=== PATIENT | male | born 1955 ===

== ENCOUNTER 2016-07-19 09:56 | Day surgery (SDC) | payer OTHER ==
[2016-07-19 10:29] VITALS: RESP 18
[2016-07-19 10:49] VITALS: BMI 29.1
[2016-07-19] MEDS ORDERED: SENSORCAINE 0.5% W/EPINEPHRINE 50ML MDV IJ ONE (11:16)
[2016-07-19] MEDS ORDERED: Ropivacaine 0.5% 30ML IV ONE (13:05)
[2016-07-19] MEDS ORDERED: Midazolam 2 MG/2 ML VIAL ONE (13:08)
[2016-07-19] MEDS ORDERED: Propofol 10 mg/ml Inj (20 ML) ONE (13:08)
[2016-07-19] MEDS ORDERED: Lactated Ringer's 1,000 ML IV ONE (13:15)
[2016-07-19] MEDS ORDERED: Sodium Chloride 0.9% 100 ML IV ONE (13:30)
[2016-07-19] MEDS ORDERED: Sevoflurane - Inhalation Anesthetic Liq (250 ml) ONE (13:46)
[2016-07-19] MEDS ORDERED: Labetalol 5mg/ml (4ml) ONE (14:21)
[2016-07-19] MEDS ORDERED: EPINEPHRINE IV ONE (14:25)
[2016-07-19] MEDS ORDERED: SODIUM CHLORIDE IV ONE (14:25)
[2016-07-19] MEDS ORDERED: Liquid Adhesive TOP ONE (14:58)
[2016-07-19] MEDS ORDERED: Oxycodone/Acetaminophen 5/325 mg Tab PO PRN ×2 (15:22)
[2016-07-19] MEDS ORDERED: HYDROmorphone 0.5 mg/0.5 ml ISec ONE (15:28)
[2016-07-19] MEDS ORDERED: HYDROmorphone 0.5 mg/0.5 ml ISec IVP PRN (15:31)
[2016-07-19] MEDS ORDERED: Lactated Ringer's 1,000 ML IV SCH (15:31)
--- NOTE | 2016-07-19 15:32 | PCM.SURG1 ---
Surgeon's Initial Post Op Note - Surgeon's Notes Surgeon: Sarah Shi MD Gallery Intern: Dina Brasher PA-C; Nicki Guo MD Type of Anesthesia: General Endo Pre-Operative Diagnosis: Left Shoulder Partial RTC tear Operative Findings: See op report Post-Operative Diagnosis: Same as pre-op dx Operation Performed: Left shoulder arthroscopy, debriedement, subacromial decompression, AC resection, mini open subpec biceps tenodesis Specimen/Specimens Removed: None Estimated Blood Loss: EBL {In ML}: 20 Date of Surgery/Procedure: 07/19/16 Time of Surgery/Procedure: 14:00
--- NOTE | 2016-07-19 15:35 | PCM.ANESB1 ---
Interscalene Block - Brachial Plexus Date of Procedure: 07/19/16 Anesthesiologist: Shruthi Pre-Procedure Diagnosis: left shoulder internal derangement Post-Procedure Diagnosis: same Procedure Performed: Interscalene Block of Brachial Plexus Left - Procedure Interscalene Block of Brachial Plexus: This procedure was explained to the patient that it is for post-operative pain management. Consent was obtained after a thorough discussion with the patient regarding the benefits and possible complications of local anesthetic block of the Brachial Plexus at the Interscalene area. The patient was brought to the Operating Room and standard monitors were applied. Time out was held with the circulating nurse to confirm the correct surgery and appropriate block. After applying Oxygen by nasal cannula and administering IV Sedation, the patient's head was gently rotated away from the _left operative shoulder and the anterior scalene groove was carefully palpated. The ultrasound transducer was then applied to the skin in the transverse plane and the brachial plexus was visualized lateral to the carotid artery and in between the anterior and middle scalene muscles. After identification,the anterior lateral portion of the neck was prepped with Betadine solution three times and Lidocaine 1% was injected subcutaneously for topical analgesia. At this point, a # 22 gauge Stimuplex 2 inches insulated needle was inserted into the interscalene groove and directed in a caudal and midline direction. The needle was inserted lateral to the ultrasound transducer in-plane towards the brachial plexus in a [id number] direction. Needle advancement was performed carefully under direct ultrasound visualization. Nerve stimulator was used and twitched of the affected extremity including the hand brachialis muscles, biceps and the deltoid was obtained at a current of __0.3___MA. After repeated negative aspiration,___5__cc of__0.5___,___ropivacaine were injected and this was followed with __15___cc of __.05___% ___Ropivacaine__ . Under ultrasound guidance the local anesthetics were observed surrounding the roots of the brachial plexus. The needle was removed intact and sterile dressing was applied. The patient had stable vital signs, was conscious and in no apparent distress. The patient tolerated the interscalene block of the bracheal plexus well with stable vital signs and was prepared for subsequent surgery.
[2016-07-19 17:00] VITALS: TEMP 98
--- NOTE | 2016-07-19 17:00 | OP ---
PROCEDURE DATE: 07/19/2016 DATE OF OPERATION: 07/19/2016 ATTENDING PHYSICIAN: Sarah Shi MD ASSISTANTS: NAILA Sotomayor PREOPERATIVE DIAGNOSES: 1. Left shoulder partial rotator cuff tear. 2. Impingement. 3. Tenosynovitis. POSTOPERATIVE DIAGNOSES: 1. Left shoulder partial supraspinatus tear. 2. Anterior labral tear. 3. Type I superior labral anterior posterior tear. 4. Biceps tenosynovitis. 5. Impingement. 6. Subacromial bursitis. 7. Multiple subacromial adhesions. 8. Acromioclavicular joint arthritis. ANESTHESIA: General, interscalene block PROCEDURE: 1. Left shoulder extensive debridement. 2. Lysis of adhesion without manipulation. 3. Subacromial decompression with acromioplasty. 4. Distal clavicle excision. 5. Sub-pec biceps tenodesis. EBL: 5 mL SPECIMENS: None CLOSURE: Primary FLUIDS: See anesthesia sheet ANTIBIOTICS: See anesthesia sheet COMPLICATIONS: None INDICATIONS: After failing a course of non-operative therapy, the patient elected to undergo the above procedures. In the office the risks and possible complications of the shoulder arthroscopy were discussed in detail with the patient. These risks include, but are not limited to: continued pain, lack of motion, infection, vascular injury, and nerve injury including axillary nerve dysfunction, reflex sympathetic dystrophy, compartment syndrome, limb loss, and . The patient expressed an understanding of the risks and possible benefits of the procedure, and was also made aware of the alternatives to surgery. An informed consent was obtained, and was checked immediately pre-op. PROCEDURE 1: The patient was correctly identified in the holding area and the left shoulder was marked with the surgeon's initials. The patient was transported to the operating room and placed in the supine position and general , interscalene block anesthesia was obtained. A preoperative orthopedic examination revealed a passive range of motion of 170 degrees of forward flexion , 50 degrees of external rotation, and 130 degrees of abduction. Stability examination revealed: No instability was noted. PROCEDURE 2: The patient was then placed in a beach chair position utilizing the beach chair positioning device. The patient's head was stabilized and the indicated upper extremity was prepped and draped in the standard surgical fashion. The anatomic structures were outlined with a skin marker, and 1% lidocaine with epinephrine was injected into the posterior, anterior, and lateral portal areas. A #21-gauge spinal needle was placed in the glenohumeral joint from the posterior portal and 10 mL of sterile saline was injected into the glenohumeral joint. Return of fluid indicated correct needle placement into the joint. The needle was then withdrawn and a #11 blade was used to make a 1 cm incision at the posterior portal site. Next, the arthroscopic blunt trocar was inserted into the glenohumeral joint. A #21-gauge spinal needle was placed through the anterior rotator interval, and the anterior portal was made with a #11 blade after the spinal needle was withdrawn. A 7-mm cannula was then inserted after the skin incision was made and the arthroscopic probe was then used to examine the internal structures of the glenohumeral joint. With the shoulder abducted and externally rotated position, the articular surface of the rotator cuff was visualized. The arthroscope and probe were then switched from posterior to anterior. The posterior labrum, posterior capsule, and biceps anchor reflection was then inspected with the arthroscope in the anterior portal position. Examination of the glenohumeral joint revealed: 1. Partial supraspinatus tear. 2. Type I SLAP tear. 3. Biceps tenosynovitis. Using the probe, the labrum was circumferentially assessed for tear. Tears were noted at anterior labrum. Using the 4.0 motorized shaver and radiofrequency probe, the torn edges of the labrum were debrided until stable rim, preventing any further propagation. The biceps pathology was addressed with biceps tenodesis. Upon careful arthroscopic evaluation of biceps tendon and its anchor site at the labrum, it was noted to be highly frayed and tears not amenable to repair. Biceps tenotomy was performed using the arthroscopic scissors. Afterwards, a small 2 cm incision was marked within the axillary fold and injected with 2 mL of 1% lidocaine with epinephrine. Skin incision was made using a 15 blade. Deeper dissection was carried out with scissor, and interval between pectoralis major tendon and coracobrachialis. Biceps tendon was identified sitting within the biceps groove. It was removed from the groove and found to be erythematous with inter-substance fraying and tearing. Torn edges of the tendon were incised using 15 blade and a 2.0 fiber loop was used to whip stitch the tendon. The elbow was taken through flexion and extension to identify the appropriated site of tenodesis within the bicipital groove with proper tensioning of muscle belly. For tenodesis, we used the Arthrex bicortical button. The free ends of fiber loop were loaded onto the metal cortical button. The diameter of the tendon was measured using the guide. Using appropriate drill bit for, bicortical drill hole was made at the top of bicipital groove. Then, using the appropriate size reamer, as determined after measuring the width of biceps tendon, the near cortex was drilled approximately 1.5 cm in depth. The cortical button was loaded on the handle and passed through the drilled hole then flipped at the far cortex. The Biceps tendon was delivered into the drill hole and was sutured and secured with fiber loop. Normal saline irrigation was used to remove all the debris and loose bodies. Skin edges were brought closer using 2.0 Vicryl sutures and closed 4.0 Nylon sutures. The 4.0 mm straight shaver was introduced through the anterior portal, and the type I SLAP lesion was debrided. Extreme care was taken to protect the chondral surfaces as well as the substance of the biceps tendon. The 4.0 mm straight shaver was introduced through the anterior portal, and the partially torn supraspinatus lesion was debrided. Extreme care was taken to protect the chondral surfaces as well as the substance of the intact tendon. It was noted that greater than 50% of the tendon thickness remained after the debridement. Sub-Acromial Space At this point, the arthroscope was withdrawn from the glenohumeral joint and subacromial space was then entered using a blunt trocar. Gentle resistance sweeping against the coracoacromial ligament confirmed proper placement of the sheath and the arthroscope was inserted. A 1-cm incision was made at the inferolateral acromial area to create the lateral portal. Examination of the subacromial space revealed: 1. Extensive bursitis. 2. Multiple subacromial adhesions. 3. Impingement. 4. AC joint arthritis. Visualization of the subacromial space was difficult due to excessive bursitis. A bursectomy was performed using a combination of radiofrequency device as well as a 4.0-mm full radius motorized shaver. The soft tissue on the undersurface of the acromion was debrided utilizing the 4.0 mm full radius shaver and the radiofrequency device was used for hemostasis. At this point, the coracoacromial ligament was released, with the radiofrequency device, and the acromial branch of the thoracoacromial artery was coagulated with the same instrument. Sub-acromial decompression was performed with a 4.0 mm conical amy using both the medial portal and the "cutting-block" precision acromioplasty technique from the posterior portal. The undersurface of the acromion was resected to a flat, smooth surface to allow unrestricted excursion of the rotator cuff. There were multiples adhesions noted within the sub-acromial space. Adhesions were found within the anterior, posterior and lateral gutter. These adhesions were scared into to anterior and posterior portion of rotator cuff limiting range of motion. Using the 4.0 mm motorized shaver and radiofrequency probe, adhesions were debrided and removed. All the bleeding surfaces were coagulated. Afterwards, the shoulder was taken through range of motion and there was a notable improvement in range of motion and unrestrictive excursion of rotator cuff muscle and tendons. After adequate subacromial decompression, attention was then turned to the acromioclavicular joint which was localized using a 21 gauge spinal needle. A single 1 cm incision was placed on the superior aspect of the acromioclavicular joint, and the arthroscope and radio frequency device were then inserted. Utilizing the radio frequency device for hemostasis as well as tissue ablation, the perimeter of the distal clavicle was denuded of soft tissue. Care was taken to preserve the supero-posterior soft tissue ligamentous attachments to the distal clavicle. A 4.0 mm conical amy was introduced through the superior portal and 7 mm of distal clavicle was excised. One mm of medial acromion was also resected. All resected bone was planed to a smooth, flat surface, and was checked by arthroscopic visualization from the superior AC joint portal. The subacromial space was then irrigated with sterile saline, and closure was instituted with sutures. A dressing was placed consisting of Xeroform, 4 x 4's , ABD pads, and tape. The patient was placed in a sling with an ABD pad in the axilla. The patient was then placed in a supine position and extubated without incident. The patient was transferred to the recovery room in stable condition , having tolerated the procedure well. Postoperatively, the patient will be maintained in a abduction sling. Also, provided with my rehab protocol, defining the restriction and sling use for 6 weeks. Follow up in 10 days. The sponge and needle count at the close of the case was correct. The attending surgeon was scrubbed and present for all the critical portions of the case, including all of the intra-articular arthroscopic procedures. During this procedure, I was assisted by NAILA Sotomayor, who assisted in positioning the patient on the operating room table as well as transferring the patient from the operating room table to the recovery room stretcher. In addition, NAILA Sotomayor, assisted me during the actual operative procedure by positioning the patient's extremity to allow for easier arthroscopic access to all areas of the joint. The presence of NAILA Sotomayor, as my operative staffing assistant was medically necessary to ensure the utmost safety of the patient in the pre-, intra-, and postoperative periods. Sarah Shi MD cc: [id number] TT: 07/19/2016 17:00:08 sn GARCIA
[2016-07-19 18:07] VITALS: BP 97/57; PULSE 72; O2SAT 95
== END 2016-07-19 18:20 | disposition home or self-care (01) ==
LOC: H.OPSURG 09:56
PROVIDERS: ATTEND Orthopaedic Surgery
DX: M75.112 Incomplete rotator cuff tear or rupture of left shoulder, not specified as traumatic (principal); M75.42 Impingement syndrome of left shoulder; M65.812 Other synovitis and tenosynovitis, left shoulder; E11.9 Type 2 diabetes mellitus without complications; E78.5 Hyperlipidemia, unspecified; I10 Essential (primary) hypertension; M19.90 Unspecified osteoarthritis, unspecified site

== ENCOUNTER 2018-02-06 12:21 | Emergency (ER) | payer OTHER ==
[2018-02-06 12:21] VITALS: BMI 29.1
[2018-02-06] MEDS ORDERED: Sodium Chloride 0.9% 1,000 ML IV STA ×2 (12:48→15:12)
[2018-02-06 13:29] LABS: VENOUS BLOOD GAS BASE EXCESS -1.3 mmol/L (0.0-2.0); VENOUS BLOOD GAS PCO2 35 mmHg (40-60); VENOUS BLOOD GAS PO2 62 mm/Hg (30-55); VENOUS BLOOD PH 7.42 (7.32-7.43)
--- NOTE | 2018-02-06 13:38 | ED PDOC ---
HPI: Abdomen Time Seen by Provider: 02/06/18 12:43 Chief Complaint (Nursing): Abdominal Pain History Per: Patient History/Exam Limitations: no limitations Onset/Duration Of Symptoms: Hrs Current Symptoms Are (Timing): Still Present Location Of Pain/Discomfort: Epigastric Additional Complaint(s): Hx of DM, gastroparesis, HTN presenting with nausea, abdominal pain, states he has vomited more than 10 times, bilious, also with blood-tinged vomit. States his pain is epigastric, sharp. Normal BM's, no fevers. States he tried taking PPI and zofran without relief. PMD: Dr. Martin Zamora Past Medical History Reviewed: Historical Data, Nursing Documentation, Vital Signs Vital Signs: Last Vital Signs Temp 97.4 F L 02/06/18 12:37 Pulse 104 H 02/06/18 12:37 Resp 18 02/06/18 12:37 BP 116/76 02/06/18 12:37 Pulse Ox 99 02/06/18 12:37 - Medical History PMH: CAD, Colonic Polyps, Diabetes (type II), Gastritis, GERD, HTN, Hypercholesterolemia Denies: Chronic Kidney Disease - Surgical History Surgical History: Endoscopy - Family History Family History: States: Diabetes, Hypertension - Home Medications Home Medications: Ambulatory Orders Medication Instructions Recorded Insulin Glargine, Recombina 40 unit SUBCUT QAM 07/19/16 [Lantus] Sitagliptin Phos/Metformin HCl 1 each PO BID 07/19/16 [Janumet Xr 50-1,000 mg Tablet] Aspirin [Ecotrin] 81 mg PO DAILY 02/06/18 Canagliflozin [Invokana] 300 mg PO DAILY 02/06/18 Ciprofloxacin [Cipro] 500 mg PO BID 7 Days tab 02/06/18 Dicyclomine [Bentyl] 20 mg PO BID #30 tab 02/06/18 Ergocalciferol (Vitamin D2) 50,000 unit PO QWK 02/06/18 [Vitamin D2] Lactobacillus Acidophilus/Fos 1 each PO DAILY 02/06/18 [Acidophilus Probiotic Tablet] Pantoprazole [Protonix] 40 mg PO DAILY 02/06/18 Rosuvastatin Calcium [Crestor] 40 mg PO DAILY 02/06/18 Semaglutide [Ozempic] 1 mg SQ SUN 02/06/18 metroNIDAZOLE [Flagyl] 500 mg PO BID 7 Days tab 02/06/18 - Allergies Allergies/Adverse Reactions: Allergies Allergy/AdvReac Type Severity Reaction Status Date / Time Iodine and Iodide Containing Allergy RASH Verified 03/26/15 07:44 Produc shrimp Allergy RASH Verified 03/12/15 07:24 Review of Systems ROS Statement: Except As Marked, All Systems Reviewed And Found Negative Gastrointestinal: Positive for: Nausea, Vomiting, Abdominal Pain Physical Exam - Reviewed Nursing Documentation Reviewed: Yes Vital Signs Reviewed: Yes - Physical Exam Appears: Positive for: Non-toxic, No Acute Distress, Uncomfortable Head Exam: Positive for: ATRAUMATIC, NORMAL INSPECTION, NORMOCEPHALIC Skin: Positive for: Normal Color, Warm, DRY Eye Exam: Positive for: EOMI, Normal appearance, PERRL ENT: Positive for: Normal ENT Inspection Neck: Positive for: Normal, Painless ROM Cardiovascular/Chest: Positive for: Regular Rate, Rhythm Respiratory: Positive for: CNT, Normal Breath Sounds Gastrointestinal/Abdominal: Positive for: Normal Exam, Soft, Tenderness (epigastric). Negative for: Distended, Guarding, Rebound Back: Positive for: Normal Inspection Extremity: Positive for: Normal ROM Neurologic/Psych: Positive for: Alert, Oriented - Laboratory Results Result Diagrams: 02/06/18 13:35 02/06/18 13:35 - ECG O2 Sat by Pulse Oximetry: 99 Pulse Ox Interpretation: Normal Medical Decision Making Medical Decision Makin Hx of DM, HTN, HLD, CAD, gastroparesis presenting with nausea and vomiting --Patient uncomfortable, slight tachycardia --Possibly GERD, gastirtis, gastroparesis, pancreatitis, biliary --Will get labs, hydrate, give pepcid, and re-eavl 7PM --Patient feeling much better --CT shows possible diverticular disease --Will treat empirically for diverticulitis with cipro and flagly --Patient tolerating PO, appearing well, wishes to go home --Patient david followup with Dr. Frank (GI) in 2 days --PAtient is very well appearing upon discharge Disposition - Clinical Impression Clinical Impression: Diverticulitis - Patient ED Disposition Is Patient to be Admitted: No - Disposition Referrals: José Manuel Frank MD [Medical Doctor] - Disposition: Routine/Home Disposition Time: 19:17 Condition: IMPROVED Prescriptions: Ciprofloxacin [Cipro] 500 mg PO BID 7 Days tab Dicyclomine [Bentyl] 20 mg PO BID #30 tab metroNIDAZOLE [Flagyl] 500 mg PO BID 7 Days tab Instructions: Diverticulitis Forms: [facility] (Dominican)
[2018-02-06 13:45] LABS: BASO % 0.1 % (0.0-2.0); EOS % 0.2 % (0.0-4.0); HEMOGLOBIN 16.8 g/dL (12.0-18.0); LYMPH % 6.6 % (20.0-40.0); MEAN CELL VOLUME 89.7 fl (80.0-94.0); MEAN CORPUSCULAR HEMOGLOBIN 28.8 pg (27.0-31.0); MEAN CORPUSCULAR HGB CONC 32.1 g/dL (33.0-37.0); MEAN PLATELET VOLUME 9.4 fl (7.2-11.7); MONO # 0.5 K/uL (0.0-0.8); MONO % 3.1 % (0.0-10.0); NEUT # 14.1 K/uL (1.8-7.0); NRBC % 0.1 % (0.0-0.0); PLATELET COUNT 249 K/uL (130-400); RBC 5.85 Mil/uL (4.40-5.90); RED CELL DISTRIBUTION WIDTH 14.3 % (11.5-14.5); WHITE BLOOD COUNT 15.7 K/uL (4.8-10.8)
[2018-02-06 14:03] LABS: ALB/GLOB RATIO 1.3 (1.0-2.1); ALBUMIN 4.7 g/dL (3.5-5.0); ALT/SGPT 41 U/L (21-72); AST/SGOT 32 U/L (17-59); BILIRUBIN,DIRECT 0.1 mg/ml (0.0-0.4); BLOOD UREA NITROGEN 25 mg/dl (9-20); CALCIUM 9.8 mg/dL (8.4-10.2); GFR NON-AFRICAN AMERICAN > 60; LIPASE 226 U/L (23-300)
[2018-02-06 15:15] LABS: BANDS 3 % (0-2); LYMPHOCYTE 4 % (20-50); MONOCYTE 3 % (0-10); NEUTROPHIL 90 % (42-75); PLATELET ESTIMATE NORMAL (NORMAL); TOTAL CELLS COUNTED 100
[2018-02-06] MEDS ORDERED: Iohexol 240 (50 ml) PO ONE (16:08)
[2018-02-06] MEDS ORDERED: Iohexol 240 (50 ml) ONE (16:17)
[2018-02-06] MEDS ORDERED: Ciprofloxacin 400mg/200ml D5W 400 MG/200 ML BAG IVPB STA (19:15)
[2018-02-06] MEDS ORDERED: metroNIDAZOLE 500mg/100ml NS 100 ML IVPB STA (19:15)
[2018-02-06 19:18] VITALS: O2SAT 99
[2018-02-06] MEDS ORDERED: metroNIDAZOLE 500mg/100ml NS 100 ML IVPB ONE (19:44)
[2018-02-06] MEDS ORDERED: Ciprofloxacin 400mg/200ml D5W 400 MG/200 ML BAG IVPB ONE (19:44)
[2018-02-07 08:16] VITALS: BP 129/72; PULSE 82; RESP 20; TEMP 97.7
--- NOTE | 2018-02-07 10:46 | CT ---
Date of service: 02/06/2018 PROCEDURE: CT Abdomen and Pelvis with contrast HISTORY: hx of gastroparesis, dm, epig pain, vomiting COMPARISON: None. TECHNIQUE: Contrast dose: Radiation dose: Total exam DLP = 482.26 mGy-cm. This CT exam was performed using one or more of the following dose reduction techniques: Automated exposure control, adjustment of the mA and/or kV according to patient size, and/or use of iterative reconstruction technique. FINDINGS: LOWER THORAX: Thread-like trace discoid atelectasis and/or scar at both lung base. Vague also trace left perifissural opacity. No dense interval consolidation. No gross mass seen. LIVER: Hepatic steatosis noted-inferred fatty sparing around the gallbladder.. No gross lesion or ductal dilatation. GALLBLADDER AND BILE DUCTS: Unremarkable. PANCREAS: Unremarkable. No gross lesion or ductal dilatation. SPLEEN: Unremarkable. ADRENALS: Unremarkable. No mass. KIDNEYS AND URETERS: No hydronephrosis or suspect renal mass. Possible sub mm bilateral renal calculi may even be vascular present. Bilateral renal ostial calcifications off the aorta also noted. Trace stranding of the perirenal fat-nonspecific is noted VASCULATURE: Unremarkable. No aortic aneurysm. No aortic atherosclerotic calcification or mural plaque present. BOWEL: There may be a few rectosigmoid diverticuli present.. No obstruction. No gross mural thickening. APPENDIX: Normal appendix. PERITONEUM: Unremarkable. No free fluid. No free air. LYMPH NODES: Unremarkable. No enlarged lymph nodes. BLADDER: Unremarkable. REPRODUCTIVE: Unremarkable. BONES: No acute fracture. OTHER FINDINGS: There is greater mural thickening perceived along the gastric body than the gastric fundus in this moderately distended with oral contrast.-a gastritis here or other infiltrative process here is some considerations. No gastric outlet obstruction seen. IMPRESSION: There is greater mural thickening perceived along the gastric body than the gastric fundus in this stomach-moderately distended with oral contrast.-a gastritis here or other mural infiltrative process here are some considerations. Clinical follow-up recommended. No gastric outlet obstruction seen. No small bowel or large bowel obstruction appreciated. Other findings as above. The gastric body mural perceived thickening was not initially mention on preliminary results (preliminary interpretation) provided by [employer]. Comments: Study marked for PA review .
== END 2018-02-06 22:15 | disposition home or self-care (01) ==
LOC: H.ER 12:21
DX: K57.92 Diverticulitis of intestine, part unspecified, without perforation or abscess without bleeding (principal); E11.43 Type 2 diabetes mellitus with diabetic autonomic (poly)neuropathy; E78.00 Pure hypercholesterolemia, unspecified; I10 Essential (primary) hypertension; Z79.4 Long term (current) use of insulin
CPT/HCPCS: 74176; 80048; 80076; 82803; 83690; 85025; 96374; 96375; 99284; C9113; J0744; J2270; J2405; J7030; Q9966

== ENCOUNTER 2018-07-06 15:07 | Emergency (ER) | payer OTHER ==
[2018-07-06 15:07] VITALS: BMI 26.6
[2018-07-06] MEDS ORDERED: Sodium Chloride 0.9% 1,000 ML IV STA ×2 (15:34→17:19)
--- NOTE | 2018-07-06 16:00 | ED PDOC ---
HPI:Nausea, Vomiting, Diarrhea Time Seen by Provider: 07/06/18 15:32 Chief Complaint (Nursing): Abdominal Pain Chief Complaint (Provider): Abdominal Pain History Per: Patient History/Exam Limitations: no limitations Onset/Duration Of Symptoms: Days (x2) Current Symptoms Are (Timing): Still Present Additional Complaint(s): 62 year old male with medical history of diabetes and hypertension, presents to the emergency department with complaints of frequent diarrhea and vomiting since last night. Patient took medications prescribed by his GI doctor, however, did not feel any improvement in symptoms. At present, he reports weakness and dehydration. Otherwise, he denies fever, chills, chest pain, or shortness of breath. Past Medical History Reviewed: Historical Data, Nursing Documentation, Vital Signs Vital Signs: Last Vital Signs Temp 98.3 F 07/06/18 15:12 Pulse 95 H 07/06/18 15:12 Resp 18 07/06/18 15:12 BP 156/91 H 07/06/18 15:12 Pulse Ox 99 07/06/18 15:12 Primary Care Provider: Non [facility] Provider, - Medical History PMH: CAD, Colonic Polyps, Diabetes (type II), Gastritis, GERD, HTN, Hypercholesterolemia Denies: Chronic Kidney Disease - Surgical History Surgical History: Endoscopy - Family History Family History: States: Diabetes, Hypertension - Home Medications Home Medications: Ambulatory Orders Medication Instructions Recorded Insulin Glargine, Recombina 40 unit SUBCUT QAM 07/19/16 [Lantus] Aspirin [Ecotrin] 81 mg PO DAILY 02/06/18 Canagliflozin [Invokana] 300 mg PO DAILY 02/06/18 Ergocalciferol (Vitamin D2) 50,000 unit PO QWK 02/06/18 [Vitamin D2] Pantoprazole [Protonix] 40 mg PO DAILY 02/06/18 Rosuvastatin Calcium [Crestor] 40 mg PO DAILY 02/06/18 Semaglutide [Ozempic] 1 mg SQ SUN 02/06/18 Sitagliptin Phos/Metformin HCl 1 tab PO BID 03/08/18 [Janumet 50-1,000 mg Tablet] Vitamin B Complex [Nature's Blend 1 tab PO DAILY 03/08/18 Balance B-100] - Allergies Allergies/Adverse Reactions: Allergies Allergy/AdvReac Type Severity Reaction Status Date / Time Iodine and Iodide Containing Allergy RASH Verified 07/06/18 15:18 Produc shrimp Allergy RASH Verified 07/06/18 15:18 Review of Systems ROS Statement: Except As Marked, All Systems Reviewed And Found Negative Constitutional: Positive for: Weakness. Negative for: Fever, Chills Cardiovascular: Negative for: Chest Pain Respiratory: Negative for: Shortness of Breath Gastrointestinal: Positive for: Vomiting, Diarrhea Physical Exam - Reviewed Nursing Documentation Reviewed: Yes Vital Signs Reviewed: Yes - Physical Exam Appears: Positive for: No Acute Distress Head Exam: Positive for: ATRAUMATIC, NORMAL INSPECTION, NORMOCEPHALIC Skin: Positive for: Normal Color Eye Exam: Positive for: Normal appearance ENT: Positive for: Normal ENT Inspection Neck: Positive for: Normal Cardiovascular/Chest: Positive for: Regular Rate, Rhythm Respiratory: Positive for: Normal Breath Sounds. Negative for: Respiratory Distress Gastrointestinal/Abdominal: Positive for: Soft, Tenderness (diffuse). Negative for: Guarding, Rebound Back: Positive for: Normal Inspection. Negative for: L CVA Tenderness, R CVA Tenderness Extremity: Positive for: Normal ROM (upper/lower) Neurological/Psych: Positive for: Awake, Alert, Normal Tone - Laboratory Results Result Diagrams: 07/06/18 16:09 07/06/18 16:09 - ECG O2 Sat by Pulse Oximetry: 99 (RA) Pulse Ox Interpretation: Normal Medical Decision Making Medical Decision Making: Time: 1531 Initial Plan: work up for recurrent gastroenteritis. * Labs * IV fluids * Reglan IVP Time: 152 --Accucheck: 198 mg/dL. 1815 Pt with improved symptoms. Labs unremarkable. Pt tolerating PO. Pt to be discharged and will follow up with senior javascript engineer and PMD. Return parameters discussed. Scribe Attestation: Documented by Malka Paez, acting as a scribe for Graciela Loera MD. Provider Scribe Attestation: All medical record entries made by the Scribe were at my direction and personally dictated by me. I have reviewed the chart and agree that the record accurately reflects my personal performance of the history, physical exam, medical decision making, and the department course for this patient. I have also personally directed, reviewed, and agree with the discharge instructions and disposition. Disposition - Clinical Impression Clinical Impression: Gastroenteritis, Diarrhea - Patient ED Disposition Is Patient to be Admitted: No - Disposition Disposition: Routine/Home Disposition Time: 18:00 Condition: IMPROVED Additional Instructions: Follow up with primary medical doctor and senior javascript engineer. Return to the emergency department if symptoms worsen or if new symptoms develop. Instructions: Diarrhea in Adolescents and Adults Forms: [facility] ([place]) Print Language: IRISH
[2018-07-06 16:13] LABS: BASO % 0.4 % (0.0-2.0); EOS # 0.1 K/uL (0.0-0.7); HEMOGLOBIN 16.2 g/dL (12.0-18.0); LYMPH # 2.3 K/uL (1.0-4.3); LYMPH % 39.9 % (20.0-40.0); MEAN CELL VOLUME 88.7 fl (80.0-94.0); MEAN CORPUSCULAR HEMOGLOBIN 29.9 pg (27.0-31.0); MEAN CORPUSCULAR HGB CONC 33.8 g/dL (33.0-37.0); MEAN PLATELET VOLUME 8.5 fl (7.2-11.7); MONO # 0.4 K/uL (0.0-0.8); MONO % 6.8 % (0.0-10.0); NEUT % 51.9 % (50.0-75.0); NRBC % 0.2 % (0.0-0.0); RBC 5.4 Mil/uL (4.40-5.90); RED CELL DISTRIBUTION WIDTH 13.9 % (11.5-14.5)
[2018-07-06 16:14] LABS: WHITE BLOOD COUNT 5.7 K/uL (4.8-10.8)
[2018-07-06 16:27] LABS: ALB/GLOB RATIO 1.4 (1.0-2.1); ALBUMIN 4.8 g/dL (3.5-5.0); ALT/SGPT 71 U/L (21-72); AST/SGOT 46 U/L (17-59); BLOOD UREA NITROGEN 18 mg/dl (9-20); CALCIUM 9.5 mg/dL (8.4-10.2); GFR NON-AFRICAN AMERICAN > 60; LIPASE 177 U/L (23-300)
[2018-07-06 18:51] VITALS: BP 124/71; PULSE 71; RESP 16; TEMP 97.8; O2SAT 100
== END 2018-07-06 18:51 | disposition home or self-care (01) ==
LOC: H.ER 15:07
DX: K52.9 Noninfective gastroenteritis and colitis, unspecified (principal); R19.7 Diarrhea, unspecified; E11.9 Type 2 diabetes mellitus without complications; I10 Essential (primary) hypertension; Z79.4 Long term (current) use of insulin; Z79.82 Long term (current) use of aspirin; Z88.8 Allergy status to other drugs, medicaments and biological substances; E78.00 Pure hypercholesterolemia, unspecified; I25.10 Atherosclerotic heart disease of native coronary artery without angina pectoris
CPT/HCPCS: 80053; 82948; 83690; 85025; 96361; 96374; 99284; J2765; J7030